=== PATIENT | male | born 1990 | race Caucasian/White ===

== ENCOUNTER 2017-03-26 21:25 | Emergency (ER) | payer SELFPAY ==
[~2017-03-26 21:25] MED LIST: ABILIFY10 MG PO
[2017-03-26] MEDS ORDERED: NO HOME MEDICATION XX (22:50)
[2017-05-10] MEDS ORDERED: PYRIDIUM200 M2 PO (03:52)
[2017-05-10] MEDS ORDERED: BACTRIM DS TAB1 EAC2 PO (03:52)
== END 2017-03-26 23:45 ==
LOC: EDMED 21:25
DX: S46.911A Strain of unspecified muscle, fascia and tendon at shoulder and upper arm level, right arm, initial encounter (principal); F17.200 Nicotine dependence, unspecified, uncomplicated; X50.1XXA Overexertion from prolonged static or awkward postures, initial encounter; Y93.67 Activity, basketball; Y92.219 Unspecified school as the place of occurrence of the external cause; Y99.8 Other external cause status